=== PATIENT | male | born 1950 | race Caucasian/White ===

== ENCOUNTER 2019-12-15 10:03 | Emergency (ER) | payer OTHER, MEDICARE ==
[2019-12-15 10:16] VITALS: BP 122/74
[2019-12-15] MEDS ORDERED: Ibuprofen TAB* 400 MG PO ONE (10:27)
--- NOTE | 2019-12-15 10:33 | UC ---
[facility] H[facility] - HPI Summary HPI Summary: patient started having L upper dental pain last pm, this am L side mouth swollen and tooth painful. Takes MSO4 and percocet for chronic pain but not working today. has not taken ibuprofen - History of Current Complaint Chief Complaint: UCDentalProblem Stated Complaint: TOOTH PAIN Time Seen by Provider: 12/15/19 10:21 Hx Obtained From: Patient Onset/Duration: Sudden Onset Severity: Severe Pain Intensity: 9 Aggravating Factor(s): Heat, Cold, Chewing Alleviating Factor(s): Nothing Related History: Previous Dental Care on Same Tooth, Swelling - Allergies/Home Medications Allergies/Adverse Reactions: Allergies Allergy/AdvReac Type Severity Reaction Status Date / Time No Known Allergies Allergy Verified 12/15/19 10:16 Home Medications: Home Medications Amitriptyline TAB* [Elavil TAB*] 75 mg PO BEDTIME 12/15/19 [History Confirmed ] Aspirin [Aspirin Childrens 81 MG] 81 mg PO DAILY 12/15/19 [History Confirmed ] Cholecalciferol TAB* [Vitamin D TAB*] 1,000 units PO DAILY 12/15/19 [History Confirmed 12/15/19] Losartan TAB* [Cozaar TAB*] 100 mg PO DAILY 12/15/19 [History Confirmed 12/15/19 ] Morphine TAB Extended Rel(*) [Ms Contin(*)] 30 mg PO BID 12/15/19 [History Confirmed 12/15/19] Omeprazole 20 mg PO DAILY 12/15/19 [History Confirmed 12/15/19] Oxycodone HCl/Acetaminophen [Percocet] 1 tab PO BID 12/15/19 [History Confirmed 12/15/19] Penicillin VK 500 MG TAB(NF) [Penicillin VK 500 mg Tab] 500 mg PO TID #30 tab [Rx] Pravastatin (NF) [Pravachol (NF)] 60 mg PO 1700 12/15/19 [History Confirmed ] Pregabalin 100 mg CAP (*) [Lyrica 100 mg CAP (*)] 200 mg PO BID 12/15/19 [ History Confirmed 12/15/19] Pregabalin 100 mg CAP (*) [Lyrica 100 mg CAP (*)] 200 mg PO TID 12/15/19 [ History Confirmed 12/15/19] Tamsulosin CAP* [Flomax CAP*] 0.4 mg PO DAILY 12/15/19 [History Confirmed ] amLODIPine TAB* [Norvasc 5 mg TAB*] 10 mg PO DAILY 12/15/19 [History Confirmed 12/15/19] PMH/Surg Hx/FS Hx/Imm Hx Previously Healthy: Yes Endocrine History: Dyslipidemia Cardiovascular History: Hypertension GI/ History: Gastroesophageal Reflux - Surgical History Surgical History: Yes Surgery Procedure, Year, and Place: [facility] SURGERY WITH METAL RODS AND SCREWS 2010 - Family History Known Family History: Positive: Cardiac Disease - Social History Occupation: Retired Lives: Alone Alcohol Use: None Substance Use Type: None Smoking Status (MU): Former Smoker Review of Systems All Other Systems Reviewed And Are Negative: Yes Constitutional: Positive: Negative Skin: Positive: Negative ENT: Positive: Dental Pain. Negative: Sore Throat Respiratory: Positive: Negative Cardiovascular: Positive: Negative Musculoskeletal: Positive: Negative Neurological/Mental Status: Positive: Negative. Negative: Headache Psychological: Positive: Negative Is Patient Immunocompromised?: No Physical Exam Triage Information Reviewed: Yes Appearance: No Pain Distress, Well-Nourished Vital Signs: Initial Vital Signs Temp 98.3 F 12/15/19 10:12 Pulse 69 12/15/19 10:12 Resp 16 12/15/19 10:12 BP 122/74 12/15/19 10:12 Pulse Ox 100 12/15/19 10:12 Vital Signs Reviewed: Yes ENT: Positive: Dental tenderness - L upper canine - facial swelling, no redness Dental: Positive: Abscess @ - L upper canine. Negative: Cervical Lymphadenopathy Neck exam: Normal Respiratory Exam: Normal Respiratory: Positive: Lungs clear Cardiovascular Exam: Normal Cardiovascular: Positive: RRR Neurological Exam: Normal Psychological Exam: Normal Skin Exam: Normal Dental Complaint Course/Dx - Differential Dx/Diagnosis Differential Diagnosis/Dx: Dental Abscess, Dental Caries, Fractured Tooth Provider Diagnosis: Dental abscess Discharge ED - Sign-Out/Discharge Documenting (check all that apply): Patient Departure All imaging exams completed and their final reports reviewed: No Studies - Discharge Plan Condition: Stable Disposition: HOME Prescriptions: Penicillin VK 500 MG TAB(NF) [Penicillin VK 500 mg Tab] 500 mg PO TID #30 tab Patient Education Materials: Dental Abscess (ED) Referrals: Max Honeycutt MD [Primary Care Provider] - Additional Instructions: use ibuprofen 600-800mg every 6 hours as needed for pain - take with food Start antibiotic today and take as directed follow-up with dentist as planned - Billing Disposition and Condition Condition: STABLE Disposition: Home
== END 2019-12-15 11:10 | disposition home or self-care (01) ==
LOC: UCEAST 10:03
DX: K04.7 Periapical abscess without sinus (principal); I10 Essential (primary) hypertension; K21.9 Gastro-esophageal reflux disease without esophagitis; E78.5 Hyperlipidemia, unspecified; Z79.82 Long term (current) use of aspirin; Z79.899 Other long term (current) drug therapy; Z87.891 Personal history of nicotine dependence
CPT/HCPCS: 99212; A9270-GY; G0463

== ENCOUNTER 2020-03-09 19:02 | Observation (INO) ==
[2020-03-09 20:51] LABS: Urine Appearance Cloudy; Urine Bilirubin Negative (Negative); Urine Blood Negative (Negative); Urine Color Amber; Urine Glucose Negative (Negative); Urine Ketones Negative (Negative); Urine Nitrite Negative (Negative); Urine Protein Negative (Negative); Urine Urobilinogen Negative (Negative)
[2020-03-09 21:18] LABS: ABS Eosinophils 0.3 10^3/ul (0-0.6); ABS Lymphocytes 1.8 10^3/ul (1.0-4.8); ABS Monocytes 0.8 10^3/ul (0-0.8); Eosinophil % 3.2 %; Hematocrit 39 % (42-52); Hemoglobin 13.6 g/dL (14.0-18.0); Lymphocyte % 22.2 %; Mean Corpuscular HGB Conc 35 g/dL (31-36); Mean Corpuscular Hemoglobin 31 pg (27-31); Mean Corpuscular Volume 89 fL (80-94); Mean Platelet Volume 7.7 fL (7.4-10.4); Nucleated Red Blood Cells % 0.1; Platelet Count 227 10^3/uL (150-450); Red Blood Count 4.35 10^6 /uL (4.18-5.48); Red Cell Distribution Width 13 % (10-15); White Blood Count 8.3 10^3/uL (3.5-10.8)
[2020-03-09 21:31] LABS: INR 1.03 (0.82-1.09)
[2020-03-09 21:37] LABS: Albumin 4.2 g/dL (3.2-5.2); Albumin/Globulin Ratio 1.7 (1-3); BUN/Creatinine Ratio 20.4 (8-20); C Reactive Protein 3.97 mg/L (<8.01); EGFR African American 38.8 (>60); EGFR Non-African American 32.1 (>60); Globulin 2.5 g/dL (2-4); Magnesium 2.2 mg/dL (1.9-2.7); Total Bilirubin 0.6 mg/dL (0.2-1.0); Total Protein 6.7 g/dL (6.4-8.9)
[2020-03-09] MEDS ORDERED: NS 0.9% 1000 ml BAG 1,000 ML IV ONE ×2 (21:58→23:41)
[2020-03-09 21:59] LABS: Urine Benzodiazepine Screen None Detected (None Detect); Urine Opiates Screen Presumptive Positive (None Detect)
[2020-03-09 22:05] LABS: TSH (Thyroid Stimulating Horm) 3.02 mcIU/mL (0.34-5.60)
[2020-03-09] MEDS ORDERED: Pregabalin 100 mg CAP (*) PO SCH (23:45)
[2020-03-09] MEDS ORDERED: Enoxaparin 30 MG/0.3 ML SYR(*) SUBCUT SCH (23:45)
[2020-03-10 01:04] LABS: Acetaminophen < 15 mcg/mL; Alcohol, S < 10 mg/dL (<10)
[2020-03-10] MEDS: NS 0.9% 1000 ml BAG 1,000 ML IV SCH ×2 (03:00→11:06)
[2020-03-10 08:32] LABS: BUN/Creatinine Ratio 21.7 (8-20); Calcium 8.2 mg/dL (8.6-10.3); EGFR African American 72.4 (>60); EGFR Non-African American 59.9 (>60); Potassium 3.8 mmol/L (3.5-5.0)
[2020-03-10] MEDS ORDERED: Morphine ORAL.SOLN 10 mg 2 mg/ml UDC 5 ml (10 mg) PO SCH (09:00)
[2020-03-10] MEDS ORDERED: Pregabalin 100 mg CAP (*) PO SCH (09:00)
[2020-03-10 13:23] VITALS: BP 154/75
== END 2020-03-10 15:30 | disposition home or self-care (01) ==
LOC: ED 19:02 → MED 19:02
PROVIDERS: ADMIT Internal Medicine; ATTEND Internal Medicine